=== PATIENT | female | born 1950 | race Caucasian/White ===

== ENCOUNTER 2019-08-14 10:48 | Outpatient (CLI) | payer MEDICARE, SELFPAY ==
--- NOTE | ~2019-08-14 | MM_ITS ---
EXAMINATION: MM screening [facility] BI w gagandeep HISTORY: Screening mammogram TECHNIQUE: Craniocaudal and mediolateral oblique 3-D tomosynthesis images were obtained and synthetic 2-D images were generated. CAD analysis was submitted and interpreted. COMPARISON: 06/02/2018, 05/31/2017, 04/07/2016 bilateral digital screening mammogram examinations BREAST PARENCHYMAL COMPOSITION: There are scattered areas of fibroglandular density. FINDINGS: There is no evidence of suspicious mass, calcification, or architectural distortion to sugg est malignancy in either breast. There has been no suspicious interval change. IMPRESSION: 1. No mammographic evidence of malignancy. 2. Recommend routine screening mammography in one year. BI-RADS Category 1: Negative Reviewed, dictated and finalized at location A.
== END 2019-08-14 10:49 | disposition home or self-care (01) ==
LOC: CHSIMG 10:53
PROVIDERS: PCP Family Medicine; Visit Provider Family Medicine
DX: Z12.31 Encounter for screening mammogram for malignant neoplasm of breast (principal)
CPT/HCPCS: 77063; 77067

== ENCOUNTER 2020-08-14 13:23 | Outpatient (CLI) | payer MEDICARE, SELFPAY ==
--- NOTE | ~2020-08-14 | MM_ITS ---
EXAMINATION: MM screening [facility] BI w gagandeep HISTORY: Screening mammogram TECHNIQUE: Craniocaudal and mediolateral oblique 3-D tomosynthesis images were obtained and synthetic 2-D images were generated. CAD analysis was submitted and interpreted. COMPARISON: 08/14/2019, 06/02/2018, 05/31/2017 bilateral digital screening mammogram examinations BREAST PARENCHYMAL COMPOSITION: There are scattered areas of fibroglandular density. FINDINGS: Bilateral small circumscribed benign intramammary lymph nodes, upper outer quadrant. Scattered low-density circumscribed 6 mm or smaller chronic left mammographic opacities are noted. There is no evidence of suspicious mass, calcification, or architectural distortion to suggest malign chanel in either breast. There has been no suspicious interval change. IMPRESSION: 1. Benign findings. No mammographic evidence of malignancy. 2. Routine mammographic screening is recommended. BI-RADS Category 2: Benign finding(s). Reviewed, dictated and finalized at location A.
== END 2020-08-14 13:24 | disposition home or self-care (01) ==
LOC: CHSIMG 13:25
PROVIDERS: PCP Family Medicine; Visit Provider Family Medicine
DX: Z12.31 Encounter for screening mammogram for malignant neoplasm of breast (principal)
CPT/HCPCS: 77063; 77067

== ENCOUNTER 2021-08-17 13:33 | Outpatient (CLI) | payer MEDICARE, SELFPAY ==
--- NOTE | ~2021-08-17 | MM_ITS ---
EXAMINATION: MM screening [facility] BI w gagandeep HISTORY: Screening TECHNIQUE: Craniocaudal and mediolateral oblique 3-D tomosynthesis images were obtained and synthetic 2-D images were generated. CAD analysis was submitted and interpreted. COMPARISON: Comparison to multiple prior studies sequentially, with oldest reviewed study dated 10/07. BREAST PARENCHYMAL COMPOSITION: There are scattered areas of fibroglandular density. FINDINGS: Benign-appearing bilateral breast asymmetries/nodules are unchanged. There is no evidence o f suspicious mass, calcification, or architectural distortion to suggest malignancy in either breast. There has been no suspicious interval change. IMPRESSION: 1. No mammographic evidence of malignancy. 2. Recommend routine screening mammography in one year. BI-RADS Category 2: Benign finding(s). Reviewed, dictated and finalized at location A.
== END 2021-08-17 13:34 | disposition home or self-care (01) ==
LOC: CHSIMG 13:35
PROVIDERS: PCP Family Medicine; Visit Provider Family Medicine
DX: Z12.31 Encounter for screening mammogram for malignant neoplasm of breast (principal)
CPT/HCPCS: 77063; 77067

== ENCOUNTER 2022-02-22 16:24 | Emergency (ER) | payer MEDICARE, SELFPAY ==
--- NOTE | ~2022-02-22 | XR_ITS ---
EXAMINATION: XR chest 1V portable Exam Date/Time: 02/22/2022 16:40 KNIFE GRINDER HISTORY: sob/COUGH Comparison: None available. RESULT: Lines, tubes, and devices: None. Lungs and pleura: No focal consolidation, pneumothorax, or large effusion. Minimal streaky right bas ilar opacities. Senescent changes. Cardiomediastinal silhouette: Stable. Other: No acute osseous or upper abdominal finding. IMPRESSION: Minimal streaky right basilar opacities likely representing atelectasis. Infection is not excluded Reviewed, dictated and finalized at location K. E GRINDER IMPRESSION: Minimal streaky right basilar opacities likely representing atelectasis. Infect ion is not excluded
--- NOTE | 2022-02-22 16:29 | ED.SOB ---
HPI - SOB/Dyspnea General Chief Complaint: Shortness of Breath/Dyspnea Stated Complaint: chest pain Time Seen by Provider: 02/22/22 16:28 Source: patient Mode of arrival: ambulatory Limitations: no limitations History of Present Illness HPI Narrative: 71-year-old female with a history of dyslipidemia, hypertension, allergic rhinitis, depression presents to the ER 3 day history of -- sinus congestion -- cough Which is nonproductive -- shortness of breath and chest heaviness -- questionable fever. Patient is a nonsmoker. Patient is up-to-date on vaccination for influenza and COVID. MD elicited complaint: shortness of breath and cough Onset (ago): day(s) ( started 3 days ago) Context: recent illness Exacerbating factors: nothing Relieving factors: nothing Associated symptoms: denies other symptoms, fever, cough and chest congestion Treatment prior to arrival: none Related Data Home Medications Medication Instructions Recorded Confirmed ascorbic acid (vitamin C) 500 mg 500 mg PO DAILY 02/06/20 capsule,extended release atorvastatin 20 mg tablet 20 mg PO DAILY 02/06/20 02/22/22 calcium carbonate 260 mg calcium 260 mg PO DAILY 02/06/20 (650 mg) chewable tablet (Link-Mint) fluticasone propionate 50 1 spray intranasal DAILY 02/06/20 mcg/actuation nasal spray,suspension (Children's Flonase Allergy Relief) hydrochlorothiazide 12.5 mg tablet 12.5 mg PO DAILY 02/06/20 losartan 50 mg tablet 50 mg PO DAILY 02/06/20 02/22/22 meloxicam 15 mg tablet 15 mg PO DAILY 02/06/20 02/22/22 montelukast 10 mg tablet 10 mg PO DAILY 02/06/20 02/22/22 montelukast 10 mg tablet 10 mg PO DAILY 02/06/20 (Singulair) pantoprazole 40 mg granules 40 mg PO DAILY 02/06/20 delayed-release for susp in packet venlafaxine 75 mg capsule,extended 75 mg PO DAILY 02/06/20 release 24 hr montelukast 10 mg tablet 10 mg PO DAILY 02/22/22 02/22/22 venlafaxine 75 mg tablet 75 mg PO DAILY 02/22/22 02/22/22 Allergies Allergy/AdvReac Type Severity Reaction Status Date / Time tramadol [From Ultram] Allergy Intermediate blood Verified 02/06/20 10:33 pressure bottoms out penicillin G Allergy Mild swell, Verified 02/06/20 10:33 breaks out Sulfa (Sulfonamide Allergy Mild mouth Verified 02/06/20 10:33 Antibiotics) itching Review of Systems Review of Systems: All systems reviewed & are unremarkable except as noted in HPI and below Constitutional: Constitutional: Reports as per HPI and Reports no additional constitutional complaints Eyes: Eyes: Reports as per HPI and Reports no additional eye complaints ENT: Reports system reviewed and no additional complaints, except as documented and Reports as per HPI Cardiovascular: Cardiovascular: Reports as per HPI and Reports no additional cardiovascular complaints Respiratory: Respiratory: Reports as per HPI, Reports no additional respiratory complaints, Reports chest congestion, Reports cough and Reports dyspnea Gastrointestinal: Gastrointestinal: Reports as per HPI and Reports no additional gastrointestinal complaints Genitourinary: Genitourinary: Reports no additional female genitourinary complaints and Reports as per HPI Musculoskeletal: Musculoskeletal: Reports no additional musculoskeletal complaints and Reports as per HPI Integumentary/Breasts: Skin/Breast: Reports system reviewed and no additional complaints, except as docu and Reports as per HPI Neurologic: Reports system reviewed and no additional complaints, except as documented and Reports as per HPI Psychiatric: Psychiatric: Reports no additional psychiatric complaints and Reports as per HPI Endocrine: Endocrine: Reports no additional endocrine complaints and Reports as per HPI Hematologic/Lymphatic: Hematologic/Lymphatic: Reports no additional hematologic/lymphatic complaints and Reports as per HPI Allergic/Immunologic: Allergic/Immunologic: Reports no additional allergic/immunologic complaints and Reports as
[2022-02-22 16:37] VITALS: BP 170/80; PULSE 95; RESP 20; TEMP 36.3; O2SAT 94
--- NOTE | 2022-02-22 16:40 | ECG_ITS ---
Measurements Intervals [place] Rate: 91 P: 72 MT: 140 QRS: 13 QRSD: 85 T: 62 QT: 367 QTc: 453 Interpretive Statements SINUS RHYTHM EARLY PRECORDIAL R/S TRANSITION INFERIOR INFARCT, AGE INDETERMINATE BORDERLINE ST-T WAVE ABNORMALITY- ANTEROLAT/HIGH LAT LEADS ABNORMAL ECG NO PREVIOUS ECG AVAILABLE FOR COMPARISON Electronically Signed On 02-22-2022 18:42:56 MANAGER BABY by Kaushik Madrigal D.O.
[2022-02-22 16:50] LABS: Basophils Absolute Auto 0.04 K/mm3 (0.00-0.10); Basophils Percent Auto 0.8 % (0.0-1.0); Eosinophils Absolute Auto 0.12 K/mm3 (0.02-0.50); Eosinophils Percent Auto 2.5 % (1.0-6.0); Hematocrit 34.5 % (35.0-42.0); Hemoglobin 11.9 g/dL (11.7-13.8); Immature Granulocyte Absolute 0.02 K/mm3 (0.00-0.00); Immature Granulocyte Percent A 0.4 % (0.0-0.0); Lymphocytes Absolute Auto 1.05 K/mm3 (1.10-4.50); Lymphocytes Percent Auto 22.1 % (18.0-42.0); Mean Corpuscular HGB Conc 34.5 g/dL (32.0-36.0); Mean Corpuscular Hemoglobin 33.4 pg (27.0-31.0); Mean Corpuscular Volume 96.9 fL (78.0-102.0); Mean Platelet Volume 9.2 fl (9.2-11.8); Monocytes Absolute Auto 0.58 K/mm3 (0.10-0.90); Monocytes Percent Auto 12.2 % (2.0-11.0); Neutrophils Absolute Auto 2.9 K/mm3 (1.7-7.2); Platelet Count Result 243 K/mm3 (150-420); Red Blood Count 3.56 M/mm3 (4.20-5.40); Red Cell Distribution Width 11.5 % (11.6-14.4); White Blood Count 4.8 K/mm3 (4.8-10.8)
[2022-02-22 17:08] LABS: Alanine Aminotransferase 22 U/L (14-59); Albumin Level 3.8 g/dL (3.4-5.0); Alkaline Phosphatase 95 U/L (46-116); Anion Gap 5 mmol/L (8-16); Aspartate Amino Transferase 16 U/L (15-37); Bilirubin,Total 0.3 mg/dL (0.00-1.00); Blood Urea Nitrogen 11 mg/dL (7-18); Calcium 8.4 mg/dL (8.5-10.1); Carbon Dioxide 30 mmol/L (21-32); Chloride 102 mmol/L (98-108); Estimated CRCL calculation 35 ml/min; Estimated Glomerular Filt Rate 47; Glucose 160 mg/dL (70-99); Lactic Acid Reflex 1.1 mmol/L (0.4-2.0); Osmolality Calculated 286 mOsm/kg (285-295); Potassium 3.1 mmol/L (3.5-5.1); Sodium 137 mmol/L (136-145); Total Protein 6.9 g/dL (6.4-8.2); Troponin I 7.1 ng/L (0.00-60.4)
[2022-02-22 17:11] LABS: Influenza A QL RT-PCR Negative (Negative); Influenza B QL RT-PCR Negative (Negative); SARS-CoV-2 RNA PCR Negative (Negative)
[2022-02-22 17:12] LABS: Prothrombin Time 10.8 Seconds (9.50-12.10)
[2022-02-22 17:13] LABS: RSV RNA, RT-PCR Negative (Negative)
[2022-02-22 17:41] VITALS: BP 148/67; PULSE 91; RESP 20; O2SAT 95
[2022-02-22] MEDS: POTASSIUM CHLORIDE 20 MEQ TABLET PO (18:01)
[2022-02-22] MEDS: levoFLOXacin 500 MG TABLET PO (18:01)
[2022-02-22 18:14] VITALS: BP 153/76; PULSE 76; RESP 20; O2SAT 95
== END 2022-02-22 18:17 | disposition home or self-care (01) ==
PROVIDERS: Emergency Provider Internal Medicine Critical Care Medicine; PCP Family Medicine
DX: J32.9 Chronic sinusitis, unspecified (principal); J40 Bronchitis, not specified as acute or chronic; J06.9 Acute upper respiratory infection, unspecified; I10 Essential (primary) hypertension; E78.5 Hyperlipidemia, unspecified; F32.A Depression, unspecified; Z20.822 Contact with and (suspected) exposure to COVID-19
CPT/HCPCS: 36415; 71045; 80053; 83605; 84484; 85025; 85610; 87637; 93005; 99284; A9270

== ENCOUNTER 2022-04-15 14:08 | Outpatient (CLI) | payer MEDICARE, SELFPAY ==
--- NOTE | ~2022-04-15 | XR_ITS ---
XR shoulder LT min 2V 04/15/2022 14:33 Indication: Left shoulder pain Procedure: 4 views left shoulder Comparison: No prior studies for comparison. Findings: There is polyarticular osteoarthritis. No fracture or traumatic malalignment. No focal soft tissue abnormality. No foreign bodies. Impression: 1: Polyarticular osteoarthritis. Reviewed, dictated and finalized at location A. ILL CLERK Impression: 1: Polyarticular osteoarthritis.
--- NOTE | ~2022-04-15 | XR_ITS ---
XR shoulder RT min 2V 04/15/2022 14:31 Indication: Shoulder pain Procedure: 4 views right shoulder Comparison: No prior studies for comparison. Findings: There is mild polyarticular osteoarthritis of the right shoulder. No fracture, subluxation or dislocation. There is anatomic alignment. No significant soft tissue abnormality. Impression: 1: Mild polyarticular osteoarthritis of the right shoulder. Reviewed, dictated and finalized at location A. CHANGER Impression: 1: Mild polyarticular osteoarthritis of the right shoulder.
== END 2022-04-15 14:09 | disposition home or self-care (01) ==
LOC: CHSIMG 14:11
PROVIDERS: PCP Family Medicine; Visit Provider Family Medicine
DX: M25.511 Pain in right shoulder (principal); M19.012 Primary osteoarthritis, left shoulder; M19.011 Primary osteoarthritis, right shoulder
CPT/HCPCS: 73030; 97110; 97161

== ENCOUNTER 2022-04-15 14:33 | Outpatient (RCR) | payer MEDICARE, SELFPAY ==
--- NOTE | 2022-04-15 15:47 | PTOPEVAL1 ---
Assessment and note entered by Katlyn Eden DPT Evaluation Information Assessment Status Evaluation Diagnosis lower extremity weakness Onset 04/12/22 Subjective Information Patient reports that she has had LE pain and weakness for years that started with B foot/ankle fractures. She reports she gets cramping a lot in both LE's. She reports difficulty with sitting for prolonged periods, sitting with legs crossed, and house work. Prior patient was able to perform all above activities without rest and without onset of pain. Patient is retired. She reports that she is also having shoulder pain and is going to see if she can get an order for that as well. Reported Pain Level Pain Score 3: Self Report Assessment PT Clinical Summary Patient is a 71 year old female who presents to PT with LE weakness. 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 She would benefit from skilled PT to address impairments and return to PLOF. Plan of Care Interventions Electrical Stimulation,Gait Training,Hot Pack/Cold Pack,Manual Therapy,Mechanical Traction,Neuro Re- education,Patient/Caregiver Educati,Therapeutic Activities,Therapeutic Exercise,Self-Care/Home Management PT Services Indicated Yes Treatment Frequency and 2x weekly for 10 visits Duration These treatments will address the objective and functional deficits as defined above. The patient will be advanced safely and appropriately in order for the patient to progress towards his/her prior level of function. Additional exercises will be introduced and as well as a comprehensive home exercise program upon discharge, if needed, ?to ensure carryover of functional gains achieved in the clinic. This treatment plan has been reviewed and agreement upon by the patient.
--- NOTE | 2022-04-20 14:35 | PTOPREEVAL ---
Assessment and note entered by Katlyn Eden DPT Evaluation Information Assessment Status Re-evaluation Diagnosis lower extremity weakness, L shoulder pain Onset 04/12/22 Subjective Information Patient reports that she has had LE pain and weakness for years that started with B foot/ankle fractures. She reports she gets cramping a lot in both LE's. She reports difficulty with sitting for prolonged periods, sitting with legs crossed, and house work. Prior patient was able to perform all above activities without rest and without onset of pain. Patient is retired. She reports that she is also having shoulder pain and is going to see if she can get an order for that as well. L shoulder pain added 04/20/22: Patient reports L shoulder pain that started within the last 3-4 months with no reported injury. She reports difficulty with lifting and reaching out. She also reports difficulty sleeping due to shoulder pain Reported Pain Level Pain Score 5,8: Self Report Assessment PT Clinical Summary Patient is a 71 year old female who presents to PT with LE weakness. 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 L shoulder pain added to POC on 04/20/22. She demonstrates decreased L shoulder strength and ROM limiting her ability to lift, reach, and sleep. She would benefit from skilled PT to address impairments and return to PLOF. Plan of Care Interventions Electrical Stimulation,Gait Training,Hot Pack/Cold Pack,Manual Therapy,Mechanical Traction,Neuro Re- education,Patient/Caregiver Educati,Therapeutic Activities,Therapeutic Exercise,Self-Care/Home Management PT Services Indicated Yes Treatment Frequency and continue per POC Duration These treatments will address the objective and functional deficits as defined above. The patient will be advanced safely and appropriately in order for the patient to progress towards his/her prior level of function. Additional exercises will be introduced and as well as a comprehensive home exercise program upon discharge, if needed, ?to ensure carryover of functional gains achieved in the clinic. This treatment plan has been reviewed and agreement upon by the patient.
--- NOTE | 2022-05-18 13:48 | PTOPPROGNS ---
Assessment and note entered by Katlyn Eden DPT Evaluation Information Assessment Status Progress Diagnosis lower extremity weakness, L shoulder pain Onset 04/12/22 Subjective Information Patient reports she feels like she is improving with PT. She reports UE and LE strength has improved as well as improved cramping in the LEs. She also reports her shoulders feel more tight than painful Assessment PT Clinical Summary Patient has attended 8 visits from 04/15/22-05/18/22 with improvement in LE and UE strength as well as UE and LE ROM. Ptaient reports improved functional ability with house hold tasks. She contnues to has strength and ROM deficits as well as pain and would beneffit from continued skilled PT to address impairments and return to PLOF. Plan of Care Interventions Electrical Stimulation,Gait Training,Hot Pack/Cold Pack,Manual Therapy,Mechanical Traction,Neuro Re- education,Patient/Caregiver Educati,Therapeutic Activities,Therapeutic Exercise,Self-Care/Home Management PT Services Indicated Yes Treatment Frequency and continue per POC Duration These treatments will address the objective and functional deficits as defined above. The patient will be advanced safely and appropriately in order for the patient to progress towards his/her prior level of function. Additional exercises will be introduced and as well as a comprehensive home exercise program upon discharge, if needed, ?to ensure carryover of functional gains achieved in the clinic. This treatment plan has been reviewed and agreement upon by the patient.
--- NOTE | 2022-05-25 13:43 | PTOPDC ---
Assessment and note entered by Katlyn Eden DPT Evaluation Information Assessment Status Re-evaluation Diagnosis lower extremity weakness, L shoulder pain Onset 04/12/22 Subjective Information Patient report she is doing well. She reports she was able to work outside yesterday and did not have an increase in pain. She also reports that she thinks that her shoulder is arthritis pain and it only hurts when she lays down at night. Reported Pain Level Pain Score 0,3: Self Report Assessment PT Clinical Summary Patient has attended 10 visits from 04/15/22-05/25/22 with improvement in LE and UE strength as well as UE and LE ROM. She made great progress towards all goals with improvement in pain and daily function. She reports she is able to complete all ADLs at [facility]. Patient is independent with HEP at this time and will be discharged. Plan of Care PT Services Indicated No
== END 2022-05-25 14:26 | disposition home or self-care (01) ==
LOC: CHSPT 14:33
PROVIDERS: Visit Provider Family Medicine
DX: R29.898 Other symptoms and signs involving the musculoskeletal system (principal)
CPT/HCPCS: 97110; 97161

== ENCOUNTER 2022-05-10 14:12 | Emergency (ER) | payer MEDICARE, SELFPAY ==
--- NOTE | ~2022-05-10 | XR_ITS ---
XR ribs RT 2V DATE: 05/10/2022 14:42 INDICATION: Patient fell one week ago. Right mid to upper lateral rib pain TECHNIQUE: 3 views of right ribs COMPARISON: 02/22/2022 portable AP chest FINDINGS: There is osteopenia. No displaced rib fracture is evident. The right lung is clear. No righ t pleural effusion or pneumothorax. Degenerative spurring of the thoracic spine. IMPRESSION: No displaced right rib fracture is detected Osteopenia Reviewed, dictated and finalized at location B.
--- NOTE | ~2022-05-10 | CT_ITS ---
EXAMINATION: CT brain wo con DATE: 05/10/2022 14:41 INDICATION: Patient fell one week ago and struck right anterior head. Headache and right eye sensitiv ity/pressure since fall. TECHNIQUE: Computed tomography (CT) of the head was performed without intravenous contrast. The mA wa s adjusted according to patient size. Iterative reconstruction technique was employed. Exam dose: 60 5.33 mGy-cm total exam DLP. COMPARISON: None FINDINGS: Bilateral vertebral artery, basilar artery and bilateral carotid siphon internal carotid ar jon calcifications. There is nonspecific diminished attenuation of the cerebral white matter, likely due to chronic small vessel ischemic changes. No intracranial mass lesion or hemorrhage or cerebrovascular accident. No midline shift or mass effec t. No subdural or epidural hematoma is detected. No fracture or bone destruction of the cranial vault. Included portions of the orbits appear unremark able. Paranasal sinuses and mastoid air cells are unremarkable. IMPRESSION: Cerebral atherosclerosis and chronic small vessel ischemic changes of the cerebral white matter No acute intracranial abnormality or skull fracture Reviewed, dictated and finalized at Location A. Reviewed, dictated and finalized at location B.
[2022-05-10 14:15] VITALS: BP 160/72; PULSE 88; RESP 16; TEMP 36.9; O2SAT 96
--- NOTE | 2022-05-10 14:16 | ED.FALL ---
HPI - Fall General Chief Complaint: Fall Stated Complaint: fall Time Seen by Provider: 05/10/22 14:15 Source: patient and RN notes reviewed Mode of arrival: ambulatory Limitations: no limitations History of Present Illness HPI Narrative: patient states that she was going up 1 step that goes in her living room at home. She tripped over her 's oxygen keily then fell backwards onto her right side onto her right rib area and her right forehead. She says that she still has a headache. There was no loss of consciousness. She has had no nausea vomiting. No difficulty with mentation. She also states she began having more pain with deep breaths in her right rib area. MD complaint: fall Onset (ago): week(s) (1) Fall from: standing and down stairs (#) (1) Fall witnessed: no Place fall occurred: home Loss of consciousness: none Symptoms prior to fall: none Context: tripped/slipped Location of injury: head and chest Severity: moderate Quality: dull and aching Associated symptoms (after fall): headache Related Data Home Medications Medication Instructions Recorded Confirmed ascorbic acid (vitamin C) 500 mg 500 mg PO DAILY 02/06/20 04/19/22 capsule,extended release atorvastatin 20 mg tablet 20 mg PO DAILY 02/06/20 04/19/22 calcium carbonate 260 mg calcium 260 mg PO DAILY 02/06/20 04/19/22 (650 mg) chewable tablet (Link-Mint) fluticasone propionate 50 1 spray intranasal DAILY 02/06/20 04/19/22 mcg/actuation nasal spray,suspension (Children's Flonase Allergy Relief) hydrochlorothiazide 12.5 mg tablet 12.5 mg PO DAILY 02/06/20 04/19/22 losartan 50 mg tablet 50 mg PO DAILY 02/06/20 04/19/22 meloxicam 15 mg tablet 15 mg PO DAILY 02/06/20 04/19/22 montelukast 10 mg tablet 10 mg PO DAILY 02/06/20 04/19/22 montelukast 10 mg tablet 10 mg PO DAILY 02/06/20 04/19/22 (Singulair) pantoprazole 40 mg granules 40 mg PO DAILY 02/06/20 04/19/22 delayed-release for susp in packet venlafaxine 75 mg capsule,extended 75 mg PO DAILY 02/06/20 04/19/22 release 24 hr montelukast 10 mg tablet 10 mg PO DAILY 02/22/22 04/19/22 venlafaxine 75 mg tablet 75 mg PO DAILY 02/22/22 04/19/22 Allergies Allergy/AdvReac Type Severity Reaction Status Date / Time tramadol [From Ultram] Allergy Intermediate blood Verified 05/10/22 14:26 pressure bottoms out penicillin G Allergy Mild swell, Verified 05/10/22 14:26 breaks out Sulfa (Sulfonamide Allergy Mild mouth Verified 05/10/22 14:26 Antibiotics) itching Review of Systems Review of Systems: All systems reviewed & are unremarkable except as noted in HPI and below PMFSH Past Medical History Medical History Chronic allergic rhinitis Depression GERD (gastroesophageal reflux disease) High cholesterol HTN (hypertension) Social History Social History Smoking status: Never smoker Second hand tobacco smoke exposure: No Alcohol intake: never Substance use: never Substance use type: does not use Lack of Transportation: No Lack of Food: Never True Current Housing: I Have Housing Concerned About Future Housing: No Difficulty Paying Gas/Electric Bills: No Difficulty Paying for Meds: No Currently Unemployed: No Education: Associate Degree Difficulty w/ Childcare or Family Care: No Exam Const: General: healthy appearing, no acute distress and alert Nutritional Appearance: well nourished Orientation/consciousness: patient oriented x3 Limitations: no limitations HENMT: Head: normal to inspection Ears: external ears normal Face/Nose/Sinus: Normal external nose present Face and sinus: normal facial exam Mouth: Yes moist mucous membranes Eyes: Conjunctivae: conjunctivae normal Pupils: Equal, round and reactive pupils present EOM: EOMs intact bilaterally Neck: Neck: normal visual inspection Chest: Chest palpation & inspection: tende
== END 2022-05-10 15:34 | disposition home or self-care (01) ==
PROVIDERS: Emergency Provider Emergency Medicine; PCP Family Medicine
DX: S20.211A Contusion of right front wall of thorax, initial encounter (principal); I10 Essential (primary) hypertension; W10.8XXA Fall (on) (from) other stairs and steps, initial encounter; Y92.008 Other place in unspecified non-institutional (private) residence as the place of occurrence of the external cause
CPT/HCPCS: 70450; 71100; 99284

== ENCOUNTER 2022-08-25 13:31 | Outpatient (CLI) | payer MEDICARE, SELFPAY ==
--- NOTE | ~2022-08-25 | MM_ITS ---
EXAMINATION: MM screening [facility] BI w gagandeep HISTORY: Screening mammogram TECHNIQUE: Craniocaudal and mediolateral oblique 3-D tomosynthesis images were obtained and synthetic 2-D images were generated. CAD analysis was submitted and interpreted. COMPARISON: 08/17/2021, 08/14/2020, 08/14/2019 BREAST PARENCHYMAL COMPOSITION: There are scattered areas of fibroglandular density. FINDINGS: Scattered benign-appearing calcifications are present. No suspicious mass, calcification, o r architectural distortion are identified in either breast to suggest malignancy. There has been no s uspicious interval change. IMPRESSION: 1. No mammographic evidence of malignancy. 2. Recommend routine screening mammography in one year. BI-RADS Category 2: Benign finding(s). Reviewed, dictated and finalized at location A.
== END 2022-08-25 13:32 | disposition home or self-care (01) ==
LOC: CHSIMG 13:33
PROVIDERS: PCP Family Medicine; Visit Provider Family Medicine
DX: Z12.31 Encounter for screening mammogram for malignant neoplasm of breast (principal)
CPT/HCPCS: 77063; 77067

== ENCOUNTER 2024-06-22 14:20 | Emergency (ER) | payer MEDICARE, SELFPAY ==
--- NOTE | ~2024-06-22 | CT_ITS ---
CT facial & cervical spine wo Ordering provider: Cali Ramirez MD History: . Fall, anterior head injury. headache/ contusion swelling . Comparison: None. Technique: Thin slice axial CT of the facial bones was performed without contrast. Coronal and sagit adriana reformatted images were also obtained. . Automated exposure control and iterative reconstruction technique were employed. The dose-length product was 325.53 mGy-cm. FINDINGS: PARANASAL SINUSES: Well aerated. BONES: No facial fracture including no nasal bone fracture. ORBITS AND SUPERFICIAL SOFT TISSUES: The optic globes and orbits are normal. Frontal scalp hematoma i s noted. Otherwise, The superficial soft tissues are normal. VISUALIZED MASTOIDS: Well aerated. LIMITED VISUALIZED BRAIN PARENCHYMA: Normal. IMPRESSION: No facial fracture. CT facial & cervical spine wo Ordering provider: Cali Ramirez MD History: . Fall, anterior head injury. headache/ contusion swelling . Comparison: None. Technique: CT of the cervical spine was performed without contrast. Sagittal and coronal reformatted images were also obtained and reviewed. Automated exposure control and iterative reconstruction annamaria hnique were employed. The dose-length product was 325.53 mGy-cm. FINDINGS: VERTEBRAE: No subluxation or acute fracture. The occipital condyles are intact. DISC SPACES: Narrowing of the disc C6-C7. Multilevel facet joint disease. Multilevel uncovertebral raghu int osteoarthritic changes. Narrowing of the left foramina at the level of C2-C3 and C3-C4 is noted. PARASPINOUS SOFT TISSUES: Normal. IMPRESSION: No acute osseous abnormality cervical spine. Reviewed, dictated and finalized at location A. IMPRESSION: No facial fracture. CT facial & cervical spine wo Ordering provider: Cali Ramirez MD History: . Fall, anterior head injury. headache/ contusion swelling . Comparison: None. Technique: CT of the cervical spine was performed without contrast. Sagittal a nd coronal reformatted images were also obtained and reviewed. Automated expos ure control and iterative reconstruction technique were employed. The dose-isabell th product was 325.53 mGy-cm. FINDINGS: VERTEBRAE: No subluxation or acute fracture. The occipital condyles are intact. DISC SPACES: Narrowing of the disc C6-C7. Multilevel facet joint disease. Multi level uncovertebral joint osteoarthritic changes. Narrowing of the left foramin a at the level of C2-C3 and C3-C4 is noted. PARASPINOUS SOFT TISSUES: Normal.
--- NOTE | ~2024-06-22 | CT_ITS ---
CT brain wo con Ordering provider: Cali Ramirez MD History: 74 years Female with . Fall, anterior head injury. headache/ contusion swelling . Comparison: May 10, 2022 Technique: CT of the head without contrast. Radiation reduction technique utilized.The dose-length pr oduct was 605.33 mGy-cm. FINDINGS: BRAIN PARENCHYMA AND CSF SPACES: Mild leukoaraiosis and diffuse cortical atrophy. Mild atheromatous d isease. No midline shift, mass effect or hemorrhage. The brain parenchyma and CSF spaces are otherwi se normal. VISUALIZED PARANASAL SINUSES: Well aerated. MASTOIDS: Well aerated. BONES: The bones appear intact. SOFT TISSUES: Visualized nasopharynx is normal. [Hematoma is seen in the frontal scalp. Otherwise, S uperficial soft tissues are normal. IMPRESSION: No acute intracranial findings. Reviewed, dictated and finalized at location A.
--- NOTE | ~2024-06-22 | XR_ITS ---
XR wrist RT min 3V Ordering provider: Cali Ramirez MD History: . Fall, landed on rt. wrist/ right wrist pain . Comparison: None. FINDINGS: BONES: No acute fracture or dislocation. No definite scaphoid fracture. Status post surgical removal of the trapezium bone is noted. Of the bones. JOINT SPACES: Normal. SOFT TISSUES: Normal. IMPRESSION: No acute osseous abnormality right wrist. Reviewed, dictated and finalized at location A.
[2024-06-22 14:20] VITALS: BP 210/87; RESP 72; TEMP 36.6; O2SAT 98
--- NOTE | 2024-06-22 14:41 | ED_ITS ---
HPI - Fall General Chief Complaint: Fall Stated Complaint: fall , head injury Source: patient Mode of arrival: ambulatory Limitations: no limitations History of Present Illness HPI Narrative: patient is a 74-year-old female with a closed head injury prior to arrival. She was walking and tripped over a rug outside and landed on the concrete to her face and right wrist. No loss of consciousness. She has pain in the nose and left forehead as well as the right wrist. Recent surgery to the right wrist for a ganglion cyst. She was not wearing her brace. MD complaint: fall Onset (ago): hour(s) ( One) Fall from: standing Fall witnessed: no Place fall occurred: home Loss of consciousness: none Prolonged down time: no Symptoms prior to fall: none Context: tripped/slipped Location of injury: head, face and other ( right upper extremity and left small digit ( this area it was only an abrasion)) Severity: moderate Severity scale (1-10): 3 Quality: burning and sharp Associated symptoms (after fall): denies Related Data Home Medications ?Medication ?Instructions ?Recorded ?Confirmed ?Last Taken ?Type ascorbic acid (vitamin C) 500 mg 500 mg PO DAILY 02/06/20 04/19/22 Unknown History capsule,extended release atorvastatin 20 mg tablet 20 mg PO DAILY 02/06/20 05/10/22 Unknown History calcium carbonate (Link-Mint) 260 mg PO DAILY 02/06/20 04/19/22 Unknown History fluticasone propionate 50 1 spray intranasal DAILY 02/06/20 04/19/22 Unknown History mcg/actuation nasal spray,suspension (Children's Flonase Allergy Relief) hydrochlorothiazide 12.5 mg tablet 12.5 mg PO DAILY 02/06/20 04/19/22 Unknown History losartan 50 mg tablet 50 mg PO DAILY 02/06/20 05/10/22 Unknown History meloxicam 15 mg tablet 15 mg PO DAILY 02/06/20 04/19/22 Unknown History montelukast 10 mg tablet 10 mg PO DAILY 02/06/20 04/19/22 Unknown History montelukast 10 mg tablet 10 mg PO DAILY 02/06/20 05/10/22 Unknown History (Singulair) pantoprazole 40 mg granules 40 mg PO DAILY 02/06/20 04/19/22 Unknown History delayed-release for susp in packet venlafaxine 75 mg capsule,extended 75 mg PO DAILY 02/06/20 05/10/22 Unknown History release 24 hr montelukast 10 mg tablet 10 mg PO DAILY 02/22/22 04/19/22 Unknown History venlafaxine 75 mg tablet 75 mg PO DAILY 02/22/22 04/19/22 Unknown History Allergies Allergy/AdvReac Type Severity Reaction Status Date / Time tramadol (From Ultram) Allergy Intermediate blood Verified 05/10/22 14:26 pressure bottoms out penicillin G Allergy Mild swell, Verified 05/10/22 14:26 breaks out Sulfa (Sulfonamide Allergy Mild mouth Verified 05/10/22 14:26 Antibiotics) itching Review of Systems Review of Systems: All systems reviewed & are unremarkable except as noted in HPI and below Constitutional: Constitutional: Reports no additional constitutional complaints Eyes: Eyes: Reports no additional eye complaints ENT: Reports system reviewed and no additional complaints, except as documented Cardiovascular: Cardiovascular: Reports no additional cardiovascular complaints Respiratory: Respiratory: Reports no additional respiratory complaints Gastrointestinal: Gastrointestinal: Reports no additional gastrointestinal complaints Genitourinary: Genitourinary: Reports no additional female genitourinary complaints Musculoskeletal: Musculoskeletal: Reports no additional musculoskeletal complaints Integumentary/Breasts: Skin/Breast: Reports system reviewed and no additional complaints, except as docu Neurologic: Reports system reviewed and no additional complaints, except as documented Psychiatric: Psychiatric: Reports no additional psychiatric complaints Endocrine: Endocrine: Reports no additional endocrine complaints Hematologic/Lymphatic: Hematologic/Lymphatic: Reports no additional hematologic/lymphatic complaints Allergic/Immunologic: Allergic/Immunologic: Reports no additional allergic/immunologic complaints [facility] Past Medical History Medical History Depression GERD (gastroesophageal reflux disease) High cholesterol HTN (hypertension) Chronic allergic rhinitis Social History Social History Smoking status: Never smoker Second hand tobacco smoke exposure: No Alcohol intake: never Substance use: never Substance use type: does not use Lack of Transportation: No Lack of Food: Never True Current Housing: I Have Housing Concerned About Future Housing: No Difficulty Paying Gas/Electric Bills: No Difficulty Paying for Meds: No Currently Unemployed: No Education: Associate Degree Difficulty w/ Childcare or Family Care: No Exam Const: General: healthy appearing Nutritional Appearance: well nourished Orientation/consciousness: patient oriented x3 HENMT: Head: normal to inspection Ears: external ears normal Face/Nose/Sinus: Normal external nose present Face and sinus: abnormal facial exam Other: patient has a large left frontal hematoma as well as abrasions of the bridge of the nose and slight deformity of the nose Eyes: Conjunctivae: conjunctivae normal Pupils: Equal, round and reactive pupils present EOM: EOMs intact bilaterally Neck: Neck: normal visual inspection Chest: Chest palpation & inspection: normal inspection of the chest Resp: Effort & Inspection: normal respiratory effort and not labored Auscultation: clear to auscultation bilaterally and no crackles Cardio: Rate: regular rate Rhythm: regular rhythm Heart sounds: no murmurs GI: Inspection: non-distended GI Palp: Yes Soft to palpation and No Tenderness to palpation present (GI) Auscultation: normal bowel sounds : General: Yes bladder normal to palpation Back/Spine/Pelvis: Back: no CVA tenderness Skin: General skin exam: normal color Rashes: no rashes Wounds: wound noted Other: left frontal hematoma, bridge of nose and right wrist and left small digit Neuro: General: patient oriented x3 Cranial nerves: Yes Nystagmus not present Speech: normal speech Extrem: General: normal to inspection Psych: Mental Status: mental status grossly normal Affect: normal affect Attitude: cooperative Course Vital Signs Vital signs: Vital Signs Temperature 36.6 C 06/22/24 14:20 Respiratory Rate 72 H 06/22/24 14:20 Blood Pressure 210/87 H 06/22/24 14:20 Pulse Oximetry 98 06/22/24 14:20 Oxygen Delivery Room Air 06/22/24 14:20 Temperature 36.6 C 06/22/24 14:20 Respiratory Rate 72 H 06/22/24 14:20 Blood Pressure 210/87 H 06/22/24 14:20 Pulse Oximetry 98 06/22/24 14:20 Oxygen Delivery Room Air 06/22/24 14:20 MDM - Fall MDM Narrative Medical decision making narrative: patient is a 74-year-old female with a head and facial injury after falling on concrete prior to arrival. We will get multiple CT scans at this time. Imaging Data Attestation: I personally reviewed and interpreted this imaging study as follows: Radiologist's impression: CT scan of the head was negative for acute process CT scan of cervical spine was negative for acute process CT scan of facial bones was negative for acute process Discharge Plan Discharge Clinical Impression: Fall Qualifiers: Encounter type: initial encounter Qualified Code(s): W19.XXXA - Unspecified fall, initial encounter Abrasion of face and extremities Qualifiers: Encounter type: initial encounter Laterality: right Qualified Code(s): S00.81XA - Abrasion of other part of head, initial encounter Patient Disposition: Home Condition: Stable Instructions: Head Injury (ED), Fall Prevention (ED) Patient Language: Nepali Prescriptions: No Action venlafaxine 75 mg tablet 75 mg PO DAILY montelukast 10 mg tablet 10 mg PO DAILY levofloxacin 250 mg tablet 250 mg PO DAILY Qty: 7 0RF doxycycline hyclate 100 mg capsule 100 mg PO BID Qty: 20 1RF venlafaxine 75 mg capsule,extended release 24hr 75 mg PO DAILY montelukast 10 mg tablet 10 mg PO DAILY atorvastatin 20 mg tablet 20 mg PO DAILY meloxicam 15 mg tablet 15 mg PO DAILY montelukast [Singulair] 10 mg tablet 10 mg PO DAILY losartan 50 mg tablet 50 mg PO DAILY hydrochlorothiazide 12.5 mg tablet 12.5 mg PO DAILY pantoprazole [address] for susp in packet 40 mg PO DAILY ascorbic acid (vitamin C) 500 mg capsule, extended release 500 mg PO DAILY calcium carbonate [Link-Mint] 260 mg calcium (650 mg) tablet,chewable 260 mg PO DAILY fluticasone propionate [Children's Flonase Allergy Rlf] 50 mcg/actuation spray,suspension 1 spray intranasal DAILY Rx Instructions: administer into each nostril Follow-up/Referrals: Clayton Porras M.D. [Primary Care Provider] - Time of Disposition: 15:52
[2024-06-22] MEDS: ACETAMINOPHEN 500 MG TABLET 1000 MG PO (14:57)
[2024-06-22] MEDS: TETANUS,DIPHTHERIA,AC PERTUSSIS ADULT 0.5 ML (ADACEL) IM (15:54)
[2024-06-22 15:57] VITALS: BP 191/88; PULSE 84; RESP 20; TEMP 36.8; O2SAT 97
--- OUTSIDE RECORDS SUMMARY | 2024-06-23 14:29 | XMS_ITS | Clinical Summary ---
Author Organization [facility] Address [address] [place] [address] Care Team Providers Care Curbstone Setter Name Role Phone Clayton Porras MD Primary Care Provider Allergies Active Allergy Reactions Criticality Noted Date Comments Penicillins Rash Low 09/29/2020 Sulfa Antibiotics Rash Low 09/29/2020 Tramadol Other (see comment) 09/29/2020 hypotension Medications fluticasone propionate 50 MCG/ACT nasal spray 1 spray by Nasal route 2 (two) times daily. Active losartan 50 MG tablet Take 50 mg by mouth daily. Active venlafaxine XR 75 MG 24 hr capsule Take 75 mg by mouth daily. 03/14/2009 Active vitamin E 100 UNIT capsule Take 400 Units by mouth daily. Active montelukast 10 MG tablet Take 10 mg by mouth nightly at bedtime. Active loratadine 10 MG tablet Take 10 mg by mouth daily. Active meloxicam 15 MG tablet Take 15 mg by mouth daily. 08/20/2019 Active atorvastatin 20 MG tablet Take 20 mg by mouth daily. 07/13/2019 Active olopatadine 0.2 % Solution Place 1 drop into both eyes daily. Active pantoprazole EC 40 MG tablet Take 40 mg by mouth daily. Active guaiFENesin ER 600 MG 12 hr tablet Take 1,200 mg by mouth 2 (two) times daily. Active fish oil 1000 MG Cap capsule Take 1,000 mg by mouth 2 (two) times daily. Active calcium carb-cholecalci ferol 600-400 MG-UNIT Tab tablet 1 tablet 3 (three) times daily. Active Encounters Date Type Department Care Team Description 03/27/2024 11:08 AM DIMETHYLANILINE SULFATOR OPERATOR - 03/27/2024 11:59 PM [facility] Hospital Encounter [facility] [address] [place] [address] Sury Payne, PROGRAM REP Discharge Disposition: Home or Self Care (Routine Discharge) 03/27/2024 11:05 AM DIMETHYLANILINE SULFATOR OPERATOR - 03/27/2024 11:07 AM DIMETHYLANILINE SULFATOR OPERATOR Hospital Encounter [facility] [address] [place] [address] Sury Payne, PROGRAM REP Discharge Disposition: Home or Self Care (Routine Discharge) 03/27/2024 Orders Only [place] [address] [place] [address] Sury Payne, PROGRAM REP 03/27/2024 Travel from Last 3 Months Family History Medical History Relation Comments Cancer Mother Aneurysm Sister Relation Status Comments Mother Sister Social History Tobacco Use Types Packs/Day Years Used Date Smoking Tobacco: Never Smokeless Tobacco: Never Alcohol Use Standard Drinks/Week Comments Not Currently 0 (1 standard drink = 0.6 oz pur e alcohol) PHQ-2 Answer Date Recorded PHQ-2 Score - If the patient scores above 3, please move on to questions 3-9 0 09/24/2021 Comments No Sex and Gender Information Value Date Recorded Sex Assigned at Female 03/27/2024 11:04 AM DIMETHYLANILINE SULFATOR OPERATOR Legal Sex Female 5:58 PM DIMETHYLANILINE SULFATOR OPERATOR Gender Identity Not on file Sexual Orientation Not on file Last Filed Vital Signs Vital Sign Reading Time Taken Comments Blood Pressure 144/76 09/29/2020 12:00 PM CDT Pulse 101 09/29/2020 9:46 AM CDT Temperature 36.9 C (98.5 F) 09/29/2020 9:46 AM CDT Respiratory Rate 18 09/29/2020 9:46 AM CDT Oxygen Saturation 98% 09/29/2020 12:00 PM CDT Inhaled Oxygen Concentration - - Weight 71.7 kg (158 lb 2 oz) 09/29/2020 9:46 AM CDT Height 149.9 cm (4' 11 ) 09/29/2020 9:46 AM CDT Body Mass Index 31.94 09/29/2020 9:46 AM CDT Plan of Treatment Health Maintenance Due Date Last Done Comments Hepatitis C 05/27/1968 DTaP, Tdap and Td Vaccines ( 1 - Tdap) 1968 Zoster Vaccines (1 of 2) 05/27/1999 Annual Medicare Wellness Visit 2014 Pneumococcal Vaccine: 50+ Years (2 of 2 - PPSV23) 11/23/2017 11/23/2016 COVID-19 Vaccine (3 - 2023-2 5 season) 2023 04/16/2020, 03/26/2020 RSV Immunization or 60+ Years (1 - 1-dose 75+ series) 2024 Colorectal Cancer Screening Colonoscopy (10 Years) 11/26/2029 11/27/2019, 11/27/2019 Dexa Scan (General) Completed 05/17/2013 Meningococcal B Vaccine Aged Out No l onger eligible based on patient's age to complete this topic Meningococcal Vaccine Aged Out No nusrat angelito eligible based on patient's age to complete this topic RSV Immunizations Under 20 Months Aged Out No longer eligible b ased on patient's age to complete this topic Procedures Procedure Name Priority Date/Time Associated Diagnosis Comments XR CHEST PA+LAT STAT 03/27/2024 11:35 AM DIMETHYLANILINE SULFATOR OPERATOR Cough CORONAVIRUS (COVID-19) ANTIGEN STAT 03/27/2024 11:28 AM DIMETHYLANILINE SULFATOR OPERATOR Cough RESP SYNCYTIAL VIRUS STAT 03/27/2024 11:28 AM DIMETHYLANILINE SULFATOR OPERATOR Cough INFLUENZA A & B STAT 03/27/2024 11:28 AM DIMETHYLANILINE SULFATOR OPERATOR Cough COLONOSCOPY 11/27/2019 12:03 PM CDT from Last 3 Months or Most Recently Relevant to Health Maintenance Results * XR CHEST PA+LAT (03/27/2024 11:35 AM DIMETHYLANILINE SULFATOR OPERATOR) Anatomical Region Laterality Modality Chest Radiographic Benita ging 03/27/2024 11:3 7 AM DIMETHYLANILINE SULFATOR OPERATOR Impressions 03/27/2024 11:43 AM DIMETHYLANILINE SULFATOR OPERATOR IMPRESSION: No significant change. No acute disease. Ordered By: SURY PAYNE Interpreted By: Sonny Schulte MD, 03/27/2024 11:37 AM Narrative 03/27/2024 11:43 AM DIMETHYLANILINE SULFATOR OPERATOR [address] [place] [address] Examination: Two-view chest Exam time: 1113 hours. Clinical history: Cough. Comparison: 03/08/2022. Technique: PA and lateral views Findings: The cardiomediastinal silhouette is stable. The heart remains within normal limits for size. Pulmonary vascularity is within normal limits. The lungs and pleural spaces remain free of any active process. The bony thorax is stable. Clothing artifact is noted. Procedure Note Sonny Schulte MD - 03/27/[address] [place] [address] Examination: Two-view chest Exam time: 1113 hours. Clinical history: Cough. Comparison: 03/08/2022. Technique: PA and lateral views Findings: The cardiomediastinal silhouette is stable. The heart remainswithin normal limits for size. Pulmonary vascularity is within normallimits. The lungs and pleural spaces remain free of any active process.The bony thorax is stable. Clothing artifact is noted. IMPRESSION: No significant change. No acute disease. Ordered By: SURY PAYNE Interpreted By: Sonny Schulte MD, 03/27/2024 11:37 AM us Sury Payne PROGRAM REP GENERAL IMAGING Final Result * CORONAVIRUS (COVID-19) ANTIGEN (03/27/2024 11:28 AM DIMETHYLANILINE SULFATOR OPERATOR) CORONAVIRUS ANTIGEN IA NEGATIVE NEGATIVE 03/27/2024 11:59 AM DIMETHYLANILINE SULFATOR OPERATOR [facility] Comment: NEGATIVE RESULTS DO NOT RULE OUT SARS-COV-2 INFECTION AND SHOULD NOT BE USED THE SOLE BASIS FOR TREATMENT OR PATIENT MANAGEMENT DECISIONS, INCLUDING INFECTION CONTROL DECISIONS. NEGATIVE RESULTS SHOULD BE CONSIDERED IN THE CONTEXT OF A PATIENT'S RECENT EXPOSURES, HISTORY AND THE PRESENCE OF CLINICAL SIGNS AND SYMPTOMS CONSISTENT WITH COVID 19. THIS TEST HAS BEEN AUTHORIZED BY THE FDA UNDER AN EMERGENCY USE AUTHORIZATION (EUA) FOR USE BY AUTHORIZED LABORATORIES. SPECIMEN TYPE NASAL 03/27/2024 11:30 AM DIMETHYLANILINE SULFATOR OPERATOR [facility] NASAL NASAL STRUCTURE / Unknown 03/27/2024 11:28 AM DIMETHYLANILINE SULFATOR OPERATOR us Sury Payne NP MICROBIOLOGY - GENERAL ORDERAB LES Final Result [facility] Formerly [facility], [facility] [place] [address], [place] [phone] * INFLUENZA A & B (03/27/2024 11:28 AM DIMETHYLANILINE SULFATOR OPERATOR) SPECIMEN TYPE (INFLUENZA) NASOPHARYNGEAL SWAB 03/27/2024 11:30 AM DIMETHYLANILINE SULFATOR OPERATOR [facility] INFLUENZA A NEGATIVE NEGATIVE 03/27/2024 11:59 AM DIMETHYLANILINE SULFATOR OPERATOR [facility] INFLUENZA B NEGATIVE NEGATIVE 03/27/2024 11:59 AM DIMETHYLANILINE SULFATOR OPERATOR [facility] Comment: A NEGATIVE RESULT DOES NOT EXCLUDE INFLUENZA VIRUS INFECTION. IF INFLUENZA IS CIRCULATING IN YOUR COMMUNITY, A DIAGNOSIS OF INFLUENZA SHOULD BE CONSIDERED BASED ON A PATIENT'S CLINICAL PRESENTATION AND EMPIRIC ANTIVIRAL TREATMENT SHOULD BE CONSIDERED IF INDICATED. NASOPHARYNGEAL SWAB / Unknown 03/27/2024 11:28 AM DIMETHYLANILINE SULFATOR OPERATOR us Sury Payne NP MICROBIOLOGY - GENERAL ORDERAB LES Final Result Performing Organization Address [facility]/ZIP Co de Phone Number [facility] [address] [place] [id number], [place] [phone] * RESP SYNCYTIAL VIRUS (03/27/2024 11:28 AM DIMETHYLANILINE SULFATOR OPERATOR) SPECIMEN TYPE NASOPHARYNGEAL SWAB 03/27/2024 11:30 AM DIMETHYLANILINE SULFATOR OPERATOR [facility] RSV NEGATIVE NEGATIVE 03/27/2024 11:59 AM DIMETHYLANILINE SULFATOR OPERATOR [facility] NASOPHARYNGEAL SWAB / Unknown 03/27/2024 11:28 AM DIMETHYLANILINE SULFATOR OPERATOR us Sury Payne NP MICROBIOLOGY - GENERAL ORDERAB LES Final Result [facility] Former[facility], [facility] [place] [address], [place] [phone] * COLONOSCOPY (11/27/2019 12:03 PM CDT) Jamie Delaney MD GI PROCEDURE ORDERABLES Final Result from Last 3 Months or Most Recently Relevant to Health Maintenance Insurance MEDICARE [facility] Care Teams Curbstone Setter Relationship Specialty Start Date End Date Clayton Porras MD Count includes the [facility] [facility] [address] [place] [address] PCP - General FAMILY PRACTICE 09/27/19
--- OUTSIDE RECORDS SUMMARY | 2024-06-23 14:29 | XMS_ITS | Referral Summary ---
Author Organization [facility] Physician Office Building [address] [place] [id number] Care Team Providers Care Welt Rander Name Role Phone Clayton Porras MD Primary Care Provider [phone]- [phone] Encounters Date Type Department Care Team Description 06/19/2024 9:15 AM CDT Office Visit [facility] Surgery [address] [address] Branden Devi PA Primary osteoarthritis of first carpometacarpal joint of right hand (Primary Dx); Right carpal tunnel syndrome; Ganglion cyst of volar aspect of right wrist 06/05/2024 10:00 AM CDT - 06/05/2024 1:00 PM CDT Surgery Operating Room [address] [place] [address] Joaquina Agudelo MD RELEASE CARPAL TUNNEL AND GUYONS CANAL RELEASE 06/05/2024 8:57 AM CDT Anesthesia Event Operating Room [address] [place] [id number] Paul Hidalgo Jr., MD Eldin, Ali S., MD 06/05/2024 7:50 AM CDT - 06/05/2024 2:06 PM CDT Hospital Encounter Operating Room [address] [place] [address] Joaquina Agudelo MD Arthritis of carpometacarpal (CMC) joint of right thumb [M18.11] (Primary Dx); Ganglion cyst of volar aspect of right wrist [M67.431]; Guyon syndrome, 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]; Right carpal tunnel syndrome [G56.01] Discharge Disposition: Discharge to home or self care 05/08/2024 9:45 AM CDT Office Visit [facility] Orthopedics [facility] [place] [address] [facility] [address] [place] [address] Jesse Hernández MD Arthritis of right knee (Primary Dx); BMI 30.0-30.9,adult 05/04/2024 1:30 PM CDT Office Visit [facility] Surgery [address] [facility] [address] [place] [address] Joaquina Agudelo MD Ganglion cyst of volar aspect of right wrist (Primary Dx); Primary osteoarthritis of first carpometacarpal joint of right hand; Right carpal tunnel syndrome from Last 3 Months Allergies Active Allergy Reactions Criticality Noted Date Comments Clarithromycin Unknown Penicillin G Swelling High Penicillins Swelling High Sulfa (Sulfonamide Antibiotics) Rash Medium 10/2020 Tramadol Hypotension High Medications venlafaxine XR (EFFEXOR-XR) 75 mg 24 hr capsule take 1 capsule by oral route 3 times every day with food 0 0 4 Active losartan (COZAAR) 50 mg tablet Take 1 tablet (50 mg total) by mouth nightly Active montelukast (SINGULAIR) 10 mg tablet Take 1 tablet (10 mg total) by mouth daily 8 Active omega-3 fatty acids-fish oil (FISH OIL) 340-1,000 mg capsule Take by mouth. Activ e atorvastatin (LIPITOR) 20 mg tablet Take 1 tablet (20 mg total) by mouth nightly Active ketoconazole (NIZORAL) 2 % shampoo SHAMPOO SCALP 1-2 TIMES PER WEEK. LEAVE ON FOR 3-5 MINUTES, THEN RINSE AND USE A CONDITIONER. 4 Active olopatadine (PATADAY) 0.2 % ophthalmic solution Administer 1 drop into affected eye(s) as needed Active omeprazole (PriLOSEC) 40 mg capsule Take 1 capsule (40 mg total) by mouth daily 4 Active cetirizine (ZyrTEC) 10 mg tablet Take 1 tablet (10 mg total) by mouth nightly Aller-zyr Active meloxicam (MOBIC) 15 mg tablet Take 1 tablet (15 mg total) by mouth daily Active calcium carbonate/vitam in D3 (CALCIUM WITH VITAMIN D ORAL) Take 1 tablet by mouth 3 (three) times a day Active FLAXSEED OIL-OMEGA 3,6,9 ORAL Take 1 tablet by mouth nightly Active vitamin E 400 unit capsule Take 1 capsule (400 Units total) by mouth daily Active cyanocobalamin, vitamin B-12, (VITAMIN B-12 ORAL) Take 1 tablet by mouth daily Active fluticasone propionate (FLONASE) 50 mcg/actuation nasal spray Administer 1 spray into each nostril 2 (two) times a day Active HYDROcodone-concetta taminophen (NORCO) 5-325 mg per tabletIndicatio ns:Pain Take 1 tablet by mouth every 6 (six) hours as needed for pain 8 tablet Active Active Problems Problem Noted Date Diagnosed Date BMI 30.0-30.9,adult 05/08/2024 Assessment & Plan (05/08/2024 10:14 AM CDT): The patient is current weight provides with a BMI over 30. I would encourage her to work on lifestyle changes to foster weight reduction. This will reduce stress on her knee. 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 She may have had a false negative it may be too early to be detectable by EMG nerve conduction study. She should continue with the night splinting and avoid overuse. Assessment & Plan (10/13/2023 12:40 PM CDT): Patient was issued a wrist control splints which may help with nighttime pain. Would recommend an EMG nerve conduction study to help confirm or refute the presence of carpal tunnel. We will initiate appropriate treatment once results of the study is available. Primary osteoarthritis of fi rst carpometacarpal joint of right hand 10/13/2023 Assessment & Plan (12/12/2023 11:47 AM CDT): The patient has pronounced arthritis of the 1st CMC joint of her right dominant hand. After reviewing the treatment options she elected undergo a cortisone injection today to the severity of her symptoms. Bracing may be uncomfortable due the bony prominences of her hand. She may find Voltaren gel applied topically to the hand beneficial. If she is not getting long-term relief she may want to get in to see a hand specialist and a referral was given. Assessment & Plan (10/13/2023 12:39 PM CDT): Patient has advanced arthritis of the 1st CMC joint that likely contributed to some of the pain and swelling of the hand and wrist. Depending on the results of the EMG nerve conduction study we will coordinate her care and a combined fashion Arthritis of right knee 05/09/2023 Assessment & Plan (05/08/2024 10:13 AM CDT): The patient has arthritis of the right knee with reactive synovitis. After reviewing the treatment options she elected undergo a cortisone injection today due the severity of her symptoms. She tolerated the procedure well. She is return the office on an as-needed basis. If she is not getting lasting relief she may need to consider other treatment options. I am retiring in the near future and have turned the care over to one of our new associates who will be available for her Assessment & Plan (05/09/2023 11:01 AM CDT): The patient has moderate arthritis of the right knee with reactive synovitis clinically. After reviewing the treatment options she elected undergo a cortisone injection today due the severity of her symptoms. She tolerated the procedure well. Long-term weight loss would likely be helpful. If she develops locking further workup of the knee would be indicated. Closed displaced fracture of fifth metatarsal bone of left foot 11/07/2017 Assessment & Plan (01/10/2018 12:24 PM STEAMFITTER): Patient's fracture is healing. She has some posttraumatic edema which is common. She was encouraged to work on stretching exercises and gradually increase activities. She is return the office for follow-up films in four weeks Assessment & Plan (12/12/2017 11:59 AM CDT): Patient has initial healing. She should avoid overuse. She could likely start to transition over to regular shoes but will find thicker soled less flexible shoes to be more comfortable for her as long as accommodate the swelling in the foot. She may want to get a larger pair of either work boots or clogs. She is return the office for follow-up films in four weeks Assessment & Plan (11/07/2017 12:11 PM CDT): Patient has a displaced 5th metatarsal fracture with reasonable overall alignment of the toes. I reviewed the treatment options which would include surgical correction of the malalignment which may speed her healing time frame but the patient wants a try hand treat this non operatively as she is retired She was provided with a postop shoe. She should continue using the walker as needed and use ice packs and elevation to the acute pain and swelling subsides. She is return the office for follow-up films in three weeks Hamstring injury 02/20/2015 Overview (05/27/2016): Tear of left hamstring, subsequent encounter Closed fracture of distal lateral malleolus 09/22 Overview (05/27/2016): Closed fracture ankle, lateral malleolus, low Basal cell carcinoma (BCC) of face 03/15/2012 Depression 10/31/2008 Overview (05/09/2023): Overview: Was on Effexor successfully in the past. Polyarthritis 10/31/2008 Plantar fasciitis 10/31/2008 Overview (05/09/2023): Overview: 10/31/2008 bilateral orthotics ordered today Insomnia 10/31/2008 Overview (05/09/2023): Overview: Better with neurontin at Social History Tobacco Use Types Packs/Day Years Used Date Smoking Tobacco: Never Smokeless Tobacco: Never Tobacco Cessation:Counseling Given: Not Answered Alcohol Use Standard Drinks/Week Comments Yes 0 (1 standard drink = 0.6 oz pur e alcohol) PHQ-2 Answer Date Recorded PHQ-2 Score 0 04/28/2018 Personal Safety Answer Date Recorded Have you ever been in or are you currently in a harmful physical or emotional relationship or is someone making you feel afraid or unsafe? Denies 06/05/2024 Comments Unknown Sex and Gender Information Value Date Recorded Sex Assigned at Not on file Legal Sex Female 9:42 AM STEAMFITTER Gender Identity Not on file Sexual Orientation Not on file Last Filed Vital Signs Vital Sign Reading Time Taken Comments Blood Pressure 154/77 06/05/2024 1:29 PM CDT Pulse 84 06/05/2024 1:29 PM CDT Temperature 36.7 C (98 F) 06/05/2024 12:08 PM CDT Respiratory Rate 16 06/05/2024 1:29 PM CDT Oxygen Saturation 95% 06/05/2024 1:29 PM CDT Inhaled Oxygen Concentration - - Weight 69.9 kg (154 lb) 06/05/2024 8:15 AM CDT Height 152.4 cm (5') 06/05/2024 8:15 AM CDT Body Mass Index 30.08 06/05/2024 8:15 AM CDT Plan of Treatment Not on file Medical Devices Implanted Type Area Digital Librarian Device Identifier Shelf Expiration Date Model / Serial / Lot [employer] Suture Thorndike Knotless Fibertak Resorbable [id number] - [id number] Implanted:Qty: 1 on 06/05/2024 by Joaquina Agudelo MD at Right: Metacarpal [employer] [id number] 02/20/2029 [id number] / / [id number] Procedures Procedure Name Priority Date/Time Associated Diagnosis Comments XR WRIST RIGHT 2 VIEWS IP Routine 06/05/2024 11:53 AM CDT FL FLUOROSCOPY < 1 HOUR IP Routine 06/05/2024 11:53 AM CDT AK AN ELECTIVE SUPRAGLOTTIC AIRWAY Routine 06/05/2024 9:06 AM CDT EXCISION GANGLION 06/05/2024 8:5 6 AM CDT Arthritis of carpometacarpal (CMC) joint of right thumb Right carpal tunnel syndrome Guyon syndrome, right Ganglion cyst of volar aspect of right wrist Special Needs MINI C-ARM, HAND SET, ARTHREX FIBERTAK, ARTHROPLASTY METACARPAL 06/05/2024 8:56 AM CDT Arthritis of carpometacarpal (CMC) joint of right thumb Right carpal tunnel syndrome Guyon syndrome, right Ganglion cyst of volar aspect of right wrist Special Needs MINI C-ARM, HAND SET, ARTHREX FIBERTAK, RELEASE CARPAL TUNNEL 06/05/2024 8:56 AM CDT Arthritis of carpometacarpal (CMC) joint of right thumb Right carpal tunnel syndrome Guyon syndrome, right Ganglion cyst of volar aspect of right wrist Special Needs MINI C-ARM, HAND SET, ARTHREX FIBERTAK, PAIN BLOCK Routine 06/05/2024 8:05 AM CDT AK ARTHROCENTESIS ASPIR&/INJ MAJOR JT/BURSA W/O US Routine 05/08/2024 9:45 AM CDT Arthritis of right knee SCREENING MAMMOGRAM Routine 10/07/2014 12:41 PM CDT COLONOSCOPY REPORT 04/19/2014 SERUM HEPATITIS C AB Routine 03/14/2014 10:31 AM STEAMFITTER DEXA AXIAL SKELETON BONE DENSITY 1 OR MORE SITES Routine 05/17/2013 11:02 AM CDT from Last 3 Months or Most Recently Relevant to Health Maintenance Results * FL Fluoroscopy < 1 Hour (06/05/2024 11:53 AM CDT) Narrative RAD_PACS_[facility] - 06/05/2024 11:54 AM CDT The images from this study are not interpreted by Radiology. Please refer to the physician's procedure / OR operative note. us Joaquina Agudelo MD IMG FLUOROSCOPY PROCEDUR ES Final Result [facility] * XR Wrist Right 2 Views (06/05/2024 11:53 AM CDT) Anatomical Region Laterality Modality Upper Extremities, Wrist Right Compute d Radiography 06/05/2024 12:2 7 PM CDT Impressions 06/05/2024 12:27 PM CDT Fluoroscopic images from right carpometacarpal arthroplasty noted. Osseous alignment within normal limits. Electronically signed by: Lucho Castro II, D.O. Narrative 06/05/2024 12:27 PM CDT EXAMINATION: XR WRIST RIGHT 2 VIEWS DATE: 06/05/2024 8:15 AM HISTORY: Postprocedural changes. COMPARISON: 10/13/2023. Procedure Note Lucho Castro II, DO - 06/05/2024 EXAMINATION: XR WRIST RIGHT 2 VIEWS DATE: 06/05/2024 8:15 AM HISTORY: Postprocedural changes. COMPARISON: 10/13/2023. IMPRESSION: Fluoroscopic images from right carpometacarpal arthroplasty noted. Osseous alignment within normal limits. Electronically signed by: Lucho Castro II, D.O. us Joaquina Agudelo MD IMG XR PROCEDURES Final Result * AK AN ELECTIVE SUPRAGLOTTIC AIRWAY (06/05/2024 9:06 AM CDT) Narrative Ishan Griffin AA - 06/05/2024 9:06 AM CDT Ishan Griffin AA 06/05/2024 9:06 AM Airway Patient location: OR Urgency: elective Date/time: 06/05/2024 9:03 AM Indications for airway management: anesthesia Difficult airway: no Staff: Supervising provider: Paul Hidalgo Jr., MD Placed by: AA: Ishan Griffin AA Emergent airway documentation: Risks and benefits discussed: yes Consent obtained: yes Consent given by: patient Airway prep: Preoxygenated: yes Mask difficulty assessment: 0 - not attempted Spontaneous ventilation during airway: absent Sedation level during airway: GA Final airway details: Final airway type: supraglottic airway Final supraglottic airway: IGel SGA size: 4 Number of attempts: 1 Additional comments: Atraumatic. Teeth as before. Paul Hidalgo Jr., MD ANESTHESIA ORDER JACQUE Final Result * AK ARTHROCENTESIS ASPIR&/INJ MAJOR JT/BURSA W/O US (05/08/2024 9:45 AM CDT) Narrative Jesse Hernández MD - 05/08/2024 9:45 AM CDT Jesse Hernández MD 05/08/2024 10:15 AM Large Joint (Hip, Knee, Shoulder) Injection: R knee Performed by: Jesse Hernández MD Authorized by: Jesse Hernández MD Large Joint Injection/Aspiration: Consent Given by: Patient Site marked: the procedure site was marked Verbal consent obtained: Yes Supporting Documentation: Indications: Pain Procedure Details: Location: Knee Site: R knee Needle Size: 22 G Approach: Anterolateral Medications: 4 mL lidocaine 10 mg/mL (1 %); 40 mg methylPREDNISolone acetate 40 mg/mL Patient tolerance: Patient tolerated the procedure well with no immediate complications Jesse Hernández MD IN CLINIC/BEDSIDE ORDERABLE S Final Result * Screening Mammogram (10/07/2014 12:41 PM CDT) Anatomical Region Laterality Modality Breast N/A Mammography 10/07/2014 12:4 1 PM CDT Narrative 10/08/2014 9:44 AM CDT Acc#: [id number] SONJA [id number] - Screening Mamm W Chandrakant Bi DATE OF EXAM: Oct 07 2014 12:41PM DIAGNOSIS: ANNUAL MAMMOGRAM CLINICAL HISTORY: SCREENING RESULT: \ EXAMINATION: BILATERAL SCREENING DIGITAL MAMMOGRAPHY WITH CAD AND TOMOSYNTHESIS HISTORY: Routine screening. History of right breast biopsy in the past, of unknown outcome. COMPARISON: 08/30/2013, 08/18/2012, 07/12/2011, 07/03/2010, 06/16/2009. FINDINGS: Craniocaudal and mediolateral oblique views of both breasts were obtained utilizing full field digital mammography. There are scattered fibroglandular densities. Multiple mole markers have been placed on both breasts. A biopsy marker clip is seen in the posterior third of central aspect of the right breast. Several small isodense masses and asymmetries in both breasts have not significantly changed. Benign-appearing calcifications are seen in both breasts. There is no suspicious dominant mass, clustered microcalcification or architectural distortion. This examination has been subjected to R2/CAD analysis. IMPRESSION: 1. BIRADS category 2, benign. 2. Annual screening mammography, monthly self-breast examinations and yearly breast examination by a physician are recommended. TECHNOLOGIST: KAYKAY SANDERS, TECHNOLOGIST MEDICAL IMAGING RETAIL COORDINATOR: TR6 TRANSCRIBE DATE/TIME: Oct 07 2014 8:20P RADIOLOGIST: ED FULLER M.D. READ ON: Oct 07 2014 7:49P ORDERING DR: ALVIN ARMSTRONG MD THIS DOCUMENT HAS BEEN ELECTRONICALLY SIGNED BY: ED FULLER M.D. ON: Oct 08 2014 9:44A RETAIL COORDINATOR: TR6 TRANSCRIBE DATE/TIME: Oct 07 2014 8:20P RADIOLOGIST: ED FULLER M.D. READ ON: Oct 07 2014 7:49P ORDERING DR: ALVIN ARMSTRONG MD THIS DOCUMENT HAS BEEN ELECTRONICALLY SIGNED BY: ED FULLER M.D. ON: Oct 08 2014 9:44A Attending: ALVIN ARMSTRONG Requesting: ALVIN ARMSTRONG Requesting Attending Fax: -- Attending ID: [id number] Requesting ID: [id number] Report To 1 ID: [id number] Report To 1 Name: OTTONIEL NAHIDJeremiahAlokERNESTO Report To 1 FAX: [phone] Report To 2 ID: Report To 2 Name: , Report To 2 FAX: -- NextGen Order #: Procedure Note Provider, MD Concepcion - 06/11/2016 Acc#: [id number] SONJA [id number] - Screening Mamm W Chandrakant Bi DATE OF EXAM: Oct 07 2014 12:41PM DIAGNOSIS: ANNUAL MAMMOGRAM CLINICAL HISTORY: SCREENING RESULT: \ EXAMINATION: BILATERAL SCREENING DIGITAL MAMMOGRAPHY WITH CAD AND TOMOSYNTHESIS HISTORY: Routine screening. History of right breast biopsy in the past, of unknown outcome. COMPARISON: 08/30/2013, 08/18/2012, 07/12/2011, 07/03/2010, 06/16/2009. FINDINGS: Craniocaudal and mediolateral oblique views of both breasts were obtained utilizing full field digital mammography. There are scattered fibroglandular densities. Multiple mole markers have been placed on both breasts. A biopsy marker clip is seen in the posterior third of central aspect of the right breast. Several small isodense masses and asymmetries in both breasts have not significantly changed. Benign-appearing calcifications are seen in both breasts. There is no suspicious dominant mass, clustered microcalcification or architectural distortion. This examination has been subjected to R2/CAD analysis. IMPRESSION: 1. BIRADS category 2, benign. 2. Annual screening mammography, monthly self-breast examinations and yearly breast examination by a physician are recommended. TECHNOLOGIST: KAYKAY SANDERS TECHNOLOGIST MEDICAL IMAGING RETAIL COORDINATOR: TR6 TRANSCRIBE DATE/TIME: Oct 07 2014 8:20P RADIOLOGIST: ED FULLER M.D. READ ON: Oct 07 2014 7:49P ORDERING DR: ALVIN ARMSTRONG MD THIS DOCUMENT HAS BEEN ELECTRONICALLY SIGNED BY: ED FULLER M.D. ON: Oct 08 2014 9:44A RETAIL COORDINATOR: TRBarbie TRANSCRIBE DATE/TIME: Oct 07 2014 8:20P RADIOLOGIST: ED FULLER M.D. READ ON: Oct 07 2014 7:49P ORDERING DR: ALVIN ARMSTRONG MD THIS DOCUMENT HAS BEEN ELECTRONICALLY SIGNED BY: ED FULLER M.D. ON: Oct 08 2014 9:44A Attending: ALVIN ARMSTRONG Requesting: ALVIN ARMSTRONG Requesting Attending Fax: -- Attending ID: [id number] Requesting ID: [id number] Report To 1 ID: [id number] Report To 1 Name: OTTONIEL ERNESTO Report To 1 FAX: [phone] Report To 2 ID: Report To 2 Name: , Report To 2 FAX: -- NextGen Order #: Historical Provider MD [facility] MAMMO PROCEDURES Miri l Result * COLONOSCOPY REPORT (04/19/2014) Anatomical Region Laterality Modality Other Narrative 04/19/2014 Ordered by an unspecified provider. Historical Provider GI PROCEDURE ORDERABLES F inal Result * Serum Hepatitis C ab (03/14/2014 10:31 AM STEAMFITTER) HCV ab Negative Negative HISTORICAL RESULTS Serum 03/14/2014 10:3 1 AM STEAMFITTER Alvin Armstrong MD LAB BLOOD ORDERABLES Final Resul t HISTORICAL RESULTS * Dexa Axial Skeleton Bone Density 1 or 2 Site (05/17/2013 11:02 AM CDT) Anatomical Region Laterality Modality Body N/A Radiographic Benita ging 05/17/2013 11:0 2 AM CDT Narrative 05/17/2013 2:11 PM CDT Mr DEXA Bone Density Axial Acc#: [id number] DATE OF EXAM: May 17 2013 CLINICAL HISTORY: Osteoporosis screening. RESULT: DXA LEFT HIP RESULTS SUMMARY: BMD (g/cm'b2) T-score Z-score Neck 0.698 -1.4 0.1 Total 0.869 -0.6 0.6 DXA L-SPINE RESULTS SUMMARY: BMD (g/cm'b2) T-score Z-score L1 0.870 -1.1 0.4 L2 0.784 -2.2 -0.6 L3 0.797 -2.6 -0.8 L4 0.843 -2.0 -0.2 Total 0.823 -2.0 -0.3 IMPRESSION: 1. OSTEOPENIA IN THE LEFT HIP REGION. 2. OSTEOPENIA IN THE LUMBAR SPINE. 3. 10 YEAR FRACTURE RISK 8.1% FOR MAJOR OSTEOPOROTIC FRACTURE AND 0.7% FOR HIP FRACTURE. COMMENT: W.H.O. defines the T-score of between -1 and -2.5 as osteopenia, the level at which there may be an increased risk of developing osteoporosis and fractures in the future. Osteoporosis is defined as T-score lower than -2.5 (significantly increased risk of fracture due to osteoporosis). T-score is a comparison to peak bone mineral density of young adult reference population. Z-score is a comparison to bone mineral density of sex and age group population. Interpreting Physician: JANNY RAMIREZ M.D. Read on: May 17 2013 11:07A Transcribed by: mil On: May 17 2013 2:04P Approved Electronically by: JANNY RAMIREZ M.D. on: May 17 2013 2:11P Ordering DR: GEORGIA GRAY WHNP HANS Attending DR: AGUEDA KOWALSKI Procedure Note Provider, MD Concepcion - 06/11/2016 DEXA Bone Density Axial Acc#: [id number] DATE OF EXAM: May 17 2013 CLINICAL HISTORY: Osteoporosis screening. RESULT: DXA LEFT HIP RESULTS SUMMARY: BMD (g/cm'b2) T-score Z-score Neck 0.698 -1.4 0.1 Total 0.869 -0.60.6 DXA L-SPINE RESULTS SUMMARY: BMD (g/cm'b2) T-score Z-score L1 0.870 -1.1 0.4 L2 0.784 -2.2 -0.6L3 0.797 -2.6 -0.8 L4 0.843 -2.0 -0.2 Total 0.823 -2.0 -0.3 IMPRESSION: 1. OSTEOPENIA IN THE LEFT HIP REGION. 2. OSTEOPENIA IN THE LUMBAR SPINE. 3. 10 YEAR FRACTURE RISK 8.1% FOR MAJOR OSTEOPOROTIC FRACTURE AND 0.7% FORHIP FRACTURE. COMMENT: W.H.O. defines the T-score of between -1 and -2.5 as osteopenia, thelevel at which there may be an increased risk of developing osteoporosisand fractures in the future. Osteoporosis is defined as T-score lowerthan -2.5 (significantly increased risk of fracture due to osteoporosis).T-score is a comparison to peak bone mineral density of young adultreference population. Z-score is a comparison to bone mineral density ofsex and age group population. Interpreting Physician: JANNY RAMIREZ M.D. Read on: May 17 201311:07A Transcribed by: mil On: May 17 2013 2:04P Approved Electronically by: JANNY RAMIREZ M.D. on: May 17 20132:11P Ordering DR: GEORGIA GRAY WHNP HANS Attending DR: AGUEDA KOWALSKI Historical Provider MD [facility] DXA PROCEDURES Final Result from Last 3 Months or Most Recently Relevant to Health Maintenance Insurance MEDICARE [employer] MED[employer]ARE SUPPLEMENT MEDICARE [employer] MEDICARE SUPPLEMENT Care Teams Welt Rander Relationship Specialty Start Date End Date Clayton Porras MD [address] [place] [address] PCP - General Family Practice 10/13/23
--- OUTSIDE RECORDS SUMMARY | 2024-06-23 14:29 | XMS_ITS ---
Author Organization [facility] Physician Office Building [address] [place] [address] Care Team Providers Care Tube Tester Name Role Phone Clayton Porras MD Primary Care Provider [phone]- [phone] Active Problems Problem Noted Date Diagnosed Date [...] 11/07/2017 Assessment & Plan (01/10/2018 12:24 PM TIME BROKER): Patient's fracture is healing. She has some [...] Overview (05/09/2023): Overview: Better with neurontin at HS Current Treatment and Therapy Plans No current plan information found. Past Treatment and Therapy Plans No past plan information found. Lifetime Dose Tracking * Chemical Lifetime Dose Automatic Entry Manual Entr y Fluoro Time 2.024 minutes 2.024 minutes 0 minutes Air kerma at the reference point (Ka,r) 2.343 mGy 2 .343 mGy 0 mGy
--- OUTSIDE RECORDS SUMMARY | 2024-06-23 14:29 | XMS_ITS | Encounter Summary ---
Author Organization [facility] [place] Address [address] [place] [address] Care Team Providers Care Compound Coating Machine Offbearer Name Role Phone Clayton Porras MD Primary Care Provider [phone] Encounter Details Date Type Department Care Team (Late st Contact Info) Description 07/29/2018 Abstract SFL CONVERSION [address] [place] [address] , Generic Conversion, Social History Tobacco Use Types Packs/Day Years Used Date Smoking Tobacco: Never Assessed Comments Unknown Sex and Gender Information Value Date Recorded Sex Assigned at Female 03/27/2024 11:04 AM JACQUARD PLATE MAKER Legal Sex Female 5:58 PM JACQUARD PLATE MAKER Gender Identity Not on file Sexual Orientation Not on file documented as of this encounter Plan of Treatment Not on file documented as of this encounter Visit Diagnoses Not on filedocumented in this encounter Additional Health Concerns Infection Onset Date Last Indicated Resolved Time COVID-19 Rule Out 11/24/2019 11/24/2019 11/25/2019 1:51 PM CDT COVID-19 Rule Out 05/01/2021 05/01/2021 05/01/2021 2:45 PM JACQUARD PLATE MAKER COVID-19 Rule Out 03/08/2022 03/08/2022 03/08/2022 2:51 PM JACQUARD PLATE MAKER COVID-19 Rule Out 12/20/2022 12/20/2022 12/20/2022 4:03 PM CDT COVID-19 Rule Out 03/27/2024 03/27/2024 03/27/2024 11:59 AM JACQUARD PLATE MAKER documented as of this encounter Care Teams Compound Coating Machine Offbearer Relationship Specialty Start Date End Date Clayton Porras MD [address] [place] [address] PCP - General FAMILY PRACTICE 09/27/19 documented as of this encounter
--- OUTSIDE RECORDS SUMMARY | 2024-06-23 14:29 | XMS_ITS | Clinical Summary ---
Author Organization [facility] [address] [place] [address] Care Team Providers Care Lipcoat Sprayer Name Role Phone Clayton Porras MD Primary Care Provider [phone]- [phone] Allergies Active Allergy Reactions Criticality Noted Date [...] 11/07/2017 Assessment & Plan (01/10/2018 12:24 PM NURSE FIRST ASSIST): Patient's fracture is healing. She has some [...] (05/09/2023): Overview: Better with neurontin at HS Encounters Date Type Department Care Team Description 06/19/2024 9:15 AM CDT Office Visit [facility] Surgery [id number] [place] [address] [address], [place] [address] Branden Devi PA Primary osteoarthritis of first carpometacarpal joint of right hand (Primary Dx); Right carpal tunnel syndrome; Ganglion cyst of volar aspect of right wrist 06/05/2024 10:00 AM CDT - 06/05/2024 1:00 PM CDT Surgery [facility] Operating Room [id number] [place] [address] Joaquina Agudelo MD RELEASE CARPAL TUNNEL AND GUYONS CANAL RELEASE 06/05/2024 8:57 AM CDT Anesthesia Event [facility] Operating Room [id number] [place] [address] Paul Hidalgo Jr., MD Eldin, Ali S., MD 06/05/2024 7:50 AM CDT - 06/05/2024 2:06 PM CDT Hospital Encounter [facility] Operating Room [id number] [place] [address] Joaquina Agudelo MD Arthritis of carpometacarpal (CMC) joint of right thumb [M18.11] (Primary Dx); Ganglion cyst of volar aspect of right wrist [M67.431]; Guyon syndrome, 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]; Right carpal tunnel syndrome [G56.01] Discharge Disposition: Discharge to home or self care 05/08/2024 9:45 AM CDT Office Visit [facility] at [address] [phone] Jesse Hernández MD Arthritis of right knee (Primary Dx); BMI 30.0-30.9,adult 05/04/2024 1:30 PM CDT Office Visit [facility] Surgery [address] [place] [address] [address], [place] [address] Joaquina Agudelo MD Ganglion cyst of volar aspect of right wrist (Primary Dx); Primary osteoarthritis of first carpometacarpal joint of right hand; Right carpal tunnel syndrome from Last 3 Months Surgical History Surgery Date Site/Laterality Comments ESOPHAGOGASTRODUODENOSCOPY COLONOSCOPY Medical History Medical History Date Comments Hx Other Medical cyst removed fr om upper back Arthritis Arthritis Malignant neoplasm of skin Cance r, skin Hypercholesterolemia High choles terol Hx Other Medical osteopenia Hypertension Hypertension GERD (gastroesophageal reflux disease) Anxiety Family History Medical History Relation Name Comments Heart disease Maternal Grandfather Cardio vascular disease; Lung cancer Mother Cancer, lung; Relation Name Status Comments Maternal Grandfather Mother Social History Tobacco Use Types Packs/Day Years [...] on file Legal Sex Female 9:42 AM NURSE FIRST ASSIST Gender Identity Not on file Sexual Orientation Not on file Obstetrics History Last Filed Vital Signs Vital Sign Reading [...] 06/05/2024 8:15 AM CDT Plan of Treatment Health Maintenance Due Date Last Done Comments Depression Screening 1950 DTaP/Tdap/Td Vaccine (1 - Tdap) 1960 Hepatitis B Screening 05/27/1967 Zoster Vaccine (1 of 2) 05/27/1999 Well Visit 65+ 2014 Osteoporosis Screening-Bone Density Scan 05/18/2015 05/17/2013 Covid-19 Vaccine (2023-2 5 season) 2023 03/03/2021, 04/16/2020, 03/26/2020 Colon Cancer Screening-Colonoscopy 04/19/2024 04/19/2014 Influenza Vaccine (Season Ended) 2024 01/20/2023, 12/23/2021, 12/22/2020, Additional history exists Fall Risk Assessment 06/05/2025 06/05/2024 Hepatitis C Screening Completed 03/14/2014 Colon Cancer Screening-CT Colonography Discontinued 04/19/2014 Colon Cancer Screening-DNA Stool Discontinued 04/19/19 Colon Cancer Screening-FIT Discontinued 04/19/2014 Colon Cancer Screening-Sigmoidoscopy Discontinued 04/19/2014 Breast Cancer Screening-Mammogram Discontinued 10/07/2014, 08/30/2013, 08/18/2012 Pneumococcal vaccine 65+ Completed 12/02/2017, 04/2016 Medical Devices Implanted Type Area Heating And Ventilating Tender Device Identifier Shelf Expiration Date Model / Serial / Lot [employer] Suture [place] Knotless Fibertak Resorbable [id number] - [id number] Implanted:Qty: 1 on 06/05/2024 by Joaquina Agudelo MD at [facility] Right: Metacarpal [employer] [id number] 02/20/2029 [id number] / / [id number] Procedures Procedure Name Priority Date/Time Associated Diagnosis Comments XR WRIST RIGHT 2 VIEWS IP Routine 06/05/2024 11:53 AM CDT FL FLUOROSCOPY < 1 HOUR IP Routine 06/05/2024 11:53 AM CDT IN AN ELECTIVE SUPRAGLOTTIC AIRWAY Routine 06/05/2024 9:06 [...] PAIN BLOCK Routine 06/05/2024 8:05 AM CDT IN ARTHROCENTESIS ASPIR&/INJ MAJOR JT/BURSA W/O US Routine 05/08/2024 9:45 AM CDT Arthritis of right knee SCREENING MAMMOGRAM Routine 10/07/2014 12:41 PM CDT COLONOSCOPY REPORT 04/19/2014 SERUM HEPATITIS C AB Routine 03/14/2014 10:31 AM NURSE FIRST ASSIST DEXA AXIAL SKELETON BONE DENSITY 1 OR [...] MD IMG XR PROCEDURES Final Result * IN AN ELECTIVE SUPRAGLOTTIC AIRWAY (06/05/2024 9:06 AM CDT) Narrative Ishan Griffin, AMINATA - 06/05/2024 9:06 AM CDT Ishan Griffin [...] 1 Additional comments: Atraumatic. Teeth as before. us Paul Hidalgo Jr., MD ANESTHESIA ORDER JACQUE Final Result * IN ARTHROCENTESIS ASPIR&/INJ MAJOR JT/BURSA W/O US (05/08/2024 [...] the procedure well with no immediate complications us Jesse Hernández MD IN CLINIC/BEDSIDE ORDERABLE S Final Result * Screening Mammogram (10/07/2014 12:41 PM CDT) Anatomical Region Laterality Modality Breast N/A Mammography 10/07/2014 12:4 1 PM CDT Narrative 10/08/2014 9:44 AM CDT Acc#: [id number] SONJA [id number] - Screening Mamm W Chandrakant [...] recommended. TECHNOLOGIST: KAYKAY SANDERS, TECHNOLOGIST MEDICAL IMAGING RESIDENT CARE PROVIDER: TR6 TRANSCRIBE DATE/TIME: Oct 07 2014 8:20P RADIOLOGIST: ED FULLER M.D. READ ON: Oct 07 2014 7:49P ORDERING DR: ALVIN ARMSTRONG MD THIS DOCUMENT HAS BEEN ELECTRONICALLY SIGNED BY: ED FULLER M.D. ON: Oct 08 2014 9:44A RESIDENT CARE PROVIDER: TR6 TRANSCRIBE DATE/TIME: Oct 07 2014 8:20P RADIOLOGIST: ED FULLER M.D. READ ON: Oct 07 2014 7:49P ORDERING DR: ALVIN ARMSTRONG MD THIS DOCUMENT HAS BEEN ELECTRONICALLY SIGNED BY: ED FULLER M.D. ON: Oct 08 2014 9:44A Attending: ALVIN ARMSTRONG Requesting: ALVIN ARMSTRONG Requesting Attending Fax: -- Attending ID: [id number] Requesting ID: [id number] Report To 1 ID: [id number] Report To 1 Name: OTTONIEL NAHIDJeremiahAlokERNESTO Report To 1 FAX: [phone] Report To 2 ID: Report To 2 Name: , Report To 2 FAX: -- NextGen Order #: Procedure Note Provider, MD Concepcion - 06/11/2016 Acc#: [id number] SONJA [id number] - Screening Mamm W Chandrakant [...] recommended. TECHNOLOGIST: KAYKAY SANDERS TECHNOLOGIST MEDICAL IMAGING RESIDENT CARE PROVIDER: TR6 TRANSCRIBE DATE/TIME: Oct 07 2014 8:20P RADIOLOGIST: ED FULLER M.D. READ ON: Oct 07 2014 7:49P ORDERING DR: ALVIN ARMSTRONG MD THIS DOCUMENT HAS BEEN ELECTRONICALLY SIGNED BY: ED FULLER M.D. ON: Oct 08 2014 9:44A RESIDENT CARE PROVIDER: TR6 TRANSCRIBE DATE/TIME: Oct 07 2014 8:20P RADIOLOGIST: ED FULLER M.D. READ ON: Oct 07 2014 7:49P ORDERING DR: ALVIN ARMSTRONG MD THIS DOCUMENT HAS BEEN ELECTRONICALLY SIGNED BY: ED FULLER M.D. ON: Oct 08 2014 9:44A Attending: ALVIN ARMSTRONG Requesting: ALVIN ARMSTRONG Requesting Attending Fax: -- Attending ID: [id number] Requesting ID: [id number] Report To 1 ID: [id number] Report To 1 Name: OTTONIEL (TISH)ERNESTO Report To 1 FAX: [phone] Report To 2 ID: Report To 2 Name: , Report To 2 FAX: -- NextGen Order #: Result [facility] Historical Provider MD [place] MAMMO PROCEDURES Miri l Result * COLONOSCOPY REPORT (04/19/2014) Anatomical Region Laterality Modality Other Narrative 04/19/2014 Ordered by an unspecified provider. Result [facility] Historical Provider GI PROCEDURE ORDERABLES F inal Result * Serum Hepatitis C ab (03/14/2014 10:31 AM NURSE FIRST ASSIST) HCV ab Negative Negative HISTORICAL RESULTS Serum 03/14/2014 10:3 1 AM NURSE FIRST ASSIST Alvin Armstrong MD LAB BLOOD ORDERABLES Final Resul t HISTORICAL RESULTS * Dexa Axial Skeleton Bone Density 1 or 2 Site (05/17/2013 11:02 AM CDT) Anatomical Region Laterality Modality Body N/A Radiographic Benita ging 05/17/2013 11:0 2 AM CDT Narrative 05/17/2013 2:11 PM CDT Mr DEXA Bone Density Axial Acc#: [id number] DATE OF EXAM: May 17 2013 CLINICAL [...] May 17 2013 2:11P Ordering DR: GEOR[place]IA GRAY, MELIDA SEVERIANO Attending DR: AGUEDA KOWALSKI Procedure Note Provider, MD Concepcion - 06/11/2016 Mr DEXA Bone Density Axial Acc#: [id number] DATE OF EXAM: May 17 2013 CLINICAL [...] on: May 17 20132:11P Ordering DR: GEORGIA GRAY, DAMIEN SEVERIANO Attending DR: AGUEDA KOWALSKI Historical Provider MD [place] DXA PROCEDURES Final Result from Last 3 Months or Most Recently Relevant to Health Maintenance Insurance MEDICARE [facility] MEDICARE SUPPLEMENT MEDICARE [facility] MEDICARE SUPPLEMENT Care Teams Lipcoat Sprayer Relationship Specialty Start Date End Date Clayton Porras MD [address] [place] [address] PCP - General Family Practice 10/13/23
--- OUTSIDE RECORDS SUMMARY | 2024-06-23 14:29 | XMS_ITS | Clinical Summary ---
Author Organization [facility] Address [address] [place] [address] Care Team Providers Care Furnace Maintenance Name Role Phone Joleen Weir MD Primary Care Provider [phone] Source Comments [facility],non-owned Affiliates and Associated Physician Practices is amultiple site organization consisting of ambulatory clinics and hospital sitesin [place], [place], [place] and [place]. This disclosure is being madepursuant to the Care Everywhere program and may not contain all information available regarding this patient. Last updated 17.[facility] Allergies Active Allergy Reactions Criticality Noted Date Comments Penicillins 10/31/2008 Tramadol Hcl 10/31/2008 Medications * Be aware that medications may not be up to date on this document. Alwaysverify current medications with the patient. lovastatin (MEVACOR) 40 MG tablet Take 40 mg by mouth at bedtime. Active losartan (COZAAR) 50 MG tablet Take 50 mg by mouth daily. Active omeprazole (PRILOSEC) 20 MG capsule Take 20 mg by mouth daily before breakfast. Active fluticasone propionate (FLONASE) 50 MCG/ACT nasal spray [place] 1 [place] into each nostril 2 times daily. Active vitamin E (TOCOPHERYL) 100 UNIT capsule Take 1 Cap by mouth daily. Active CALCIUM + D PO Take by mouth. Active MULTIVITAMIN PO Take by mouth. Active ESTROVEN PO Take by mouth. Act terrence SOY FORMULA PO Take by mouth. Active OMEGA 3 PO Take by mouth. Acti ve gabapentin (NEURONTIN) 300 MG tablet Take 1 Tab by mouth at bedtime. 30 12 10/31/200 9 Active meloxicam (MOBIC) 7.5 MG tablet Take 1 Tab by mouth daily. One pill daily for 5-7a days to treat flare ups of pain and inflammation 30 6 9 Active venlafaxine XR 24hr (EFFEXOR XR) 75 MG capsule Take 1 Cap by mouth 2 times daily. 60 5 0 Active Active Problems Problem Noted Date Diagnosed Date Polyarthritis 10/31/2008 Insomnia 10/31/2008 Overview (10/31/2008): Better with neurontin at HS Plantar fasciitis 10/31/2008 Overview (10/31/2008): 10/31/2008 bilateral orthotics ordered today Depression 10/31/2008 Overview (10/31/2008): Was on Effexor successfully in the past. Family History Relation Name Status Comments Father ? Mother Lung CA Sister Brain aneurism Social History Tobacco Use Types Packs/Day Years Used Date Smoking Tobacco: Never Alcohol Use Standard Drinks/Week Comments No 0 (1 standard drink = 0.6 oz pur e alcohol) Comments No Sex and Gender Information Value Date Recorded Sex Assigned at Not on file Legal Sex Female 7:50 AM VOICE SYSTEMS ENGINEER Gender Identity Not on file Sexual Orientation Not on file Occupation Industry Job Start Date Job End Date [employer] Not on file Not on file Not on file Last Filed Vital Signs Vital Sign Reading Time Taken Comments Blood Pressure 138/76 10/31/2008 1:20 PM CDT Pulse 76 10/31/2008 1:20 PM CDT Temperature - - Respiratory Rate - - Oxygen Saturation - - Inhaled Oxygen Concentration - - Weight 64 kg (141 lb) 10/31/2008 1:20 PM CDT Height 152.4 cm (5') 10/31/2008 1:20 PM CDT Body Mass Index 27.54 10/31/2008 1:20 PM CDT Plan of Treatment Health Maintenance Due Date Last Done Comments BONE DENSITY TESTING 1950 COLOGUARD (AGES 45-75) - COL ON CA SCREENING 1950 COLON MONITORING 1950 COLONOSCOPY - COLON CA SCREENING 1949 CT COLONOGRAPHY - COLON CA SCREENING 1950 Colorectal Cancer Screening 1950 FIT - COLON CA SCREENING 1949 FLEX SIG - COLON CA SCREENING 1950 MAMMOGRAM 1950 HEPATITIS C SCREENING 05/22/1967 DTAP/TDAP/TD VACCINES (1 - Tdap) 1968 PNEUMOCOCCAL VACCINE 50+ (1 of 1 - PCV) 05/27/1999 ZOSTER VACCINE (1 of 2) 05/27/1999 COVID-19 VACCINE (1 - 2023-2 5 season) 2023 DEPRESSION SCREENING 02/22/2024 Respiratory Syncytial Virus (RSV) Vaccine Pt: or over 60 yrs (1 - 1-dose 75+ series) 2024 INFLUENZA VACCINE (Season Ended) 2024 HEPATITIS B VACCINE Aged Out No longe r eligible based on patient's age to complete this topic HIB VACCINE Aged Out No longer eligi ble based on patient's age to complete this topic HPV VACCINE Aged Out No longer eligi ble based on patient's age to complete this topic MENINGOCOCCAL (Group B) VACC INE SHARED DECISION-MAKING Aged Out No longer eligibl e based on patient's age to complete this topic MENINGOCOCCAL GROUPS A/C/Y/W VACCINE Aged Out No longer eligible b ased on patient's age to complete this topic Care Teams Furnace Maintenance Relationship Specialty [place] [address] [facility] [address] [address] PCP - General 10/31/08
== END 2024-06-22 15:57 | disposition home or self-care (01) ==
PROVIDERS: Emergency Provider Emergency Medicine; PCP Family Medicine
DX: S00.81XA Abrasion of other part of head, initial encounter (principal); S60.211A Contusion of right wrist, initial encounter; S60.052A Contusion of left little finger without damage to nail, initial encounter; I10 Essential (primary) hypertension; Z23 Encounter for immunization; W01.0XXA Fall on same level from slipping, tripping and stumbling without subsequent striking against object, initial encounter
CPT/HCPCS: 70450; 70486; 72125; 73110; 90471; 90715; 99284; A9270